=== PATIENT | female | born 2000 | race Hispanic/Latino ===

== ENCOUNTER 2020-06-24 03:09 | Day surgery (SDC) | payer MEDICAID, OTHER ==
[2020-06-24 03:47] VITALS: BP 97/62; TEMP 98.8; BMI 26.2
--- NOTE | 2020-06-24 04:02 | PDOC.FPROB ---
FMR OB H&P: HPI - History of Present Illness Chief Complaint: contractions History of Present Illness: Pt is a 19 yo F at 39.4 wga who presents with ctx. Patient states they started this morning around 0030 after intercourse. They were about 6-7 minutes apart and not too painful or uncomfortable. Now she thinks they are a little bit more uncomfortable now and maybe 5-6 minutes apart. Patient is resting comfortably. Endorses good movement. No LOF/VD/VB. FMR OB H&P: Current - Care : 1 Para: 0 Gestational age: 39.4wga Due date: 06/27/20 Dating Criteria: LMP/14wk sono - OB Labs Blood type: B RH: positive Antibody Screen: negative HIV: negative RPR: negative HepBsAg: negative Rubella: non-immune Quad screen: negative Gonorrhea: negative Chlamydia: negative 3 hour GTT: 77/107/91 H&H: 11.8/33.7 Platelets: 228 FMR OB H&P: History - Past Medical History PMH: denies - OB History OB History: rubella non immune needs MMR PP anemia of on PO iron Asymptomatic bacteruria in 2T treated with Macrobid E coli bacteruria and UTI treated with Keflex, negative MARYCARMEN on 06/06 Tdap given on 04/09/20 EFW 2275, 19.8% on 06/06 - 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 Menarche 11yo No hx STDs - Surgical History Sx History: denies - Social History Social History: no drug, alcohol, tobacco use - Family History Family History: non contributory FMR OB H&P: Medications - Current Home Medications: Medication Instructions Recorded Confirmed Type No Known 06/24/20 06/24/20 History Allergies/Adverse Reactions: Allergies Allergy/AdvReac Type Severity Reaction Status Date / Time No Known Allergies Allergy Unverified 06/24/20 03:48 FMR OB H&P: ROS - Review of Systems General: denies: fever/chills, night sweats, fatigue, recent trauma Eyes: denies: vision changes, double vision Cardiovascular: denies: chest pain, palpitation, edema Gastrointestinal: denies: abdominal pain, diarrhea, constipation, bright red blood Genitourinary (Female): reports: contractions. denies: incontinence, vaginal pa in, vaginal bleeding, vaginal pressure Musculoskeletal: denies: pain, tenderness Neurologic: denies: weakness Integumentary: denies: itching, rash FMR OB H&P: Vital Signs - Maternal Vital signs: Vital Signs - First Documented Temp Pulse Resp BP Pulse Ox 98.8 F 91 18 97/62 98 06/24/20 03:28 06/24/20 03:28 06/24/20 03:28 06/24/20 03:28 06/24/20 03:28 - Heart Tones Baseline: 120 Variability: moderate Acceleration: present Deceleration: absent Category: category 1 Gough contractions every: 4-5 FMR OB H&P: Physical Exam - Physical Exam General: NAD, awake, alert and oriented HEENT: normocephalic and atraumatic Neck: supple, FROM Heart: RRR, normal S1/S2 General: CTAB, no respiratory distress Abdomen: soft, gravid Musculoskeletal: FROM in all four extremities Skin: no rash, good tugor Lymphatic: no unusual bruising or bleeding Psychiatric: intact recent and remote memory, good judgement and insight - Pelvic Exam SVE: 70/-2 Lemus score: 7 Membranes: intact Presentation: cephalic FMR OB H&P: A/P Disposition: Pt is a 19 yo F at 39.4 wga who presents with ctx. 1. rule out labor -patient complaining of contractions, patient looks comfortable -membranes intact -Lemus score: 7 -cervical check 3/70/-2 @0425 -continue monitoring: cat 1 strip 120bpm with + accels, moderate variability, ctx q 4-5 min at time of cervical check -plan to recheck cervix in 2 hours 2. anemia of , resolved -aware, previously on PO iron Plan to admit for labor if cervical change is evident at next cervical check in 2 hours. Discussion: Date/Time: 06/24/200 This H&P was discussed with Dr. Cobb and Dr. Monreal who agree with the above documentation and plan. Addendum - Attending - Attending Attestation Date/Time: 06/24/20657 I personally evaluated the patient and discussed the management with Dr. Sevilla. I agree with the History, Examination, Assessment and Plan documented above.
[2020-06-24] MEDS ORDERED: hydrALAZINE 20 MG/ML VIAL SLOW IVP PRN (05:09)
--- NOTE | 2020-06-24 06:44 | PDOC.BPN ---
<Magalis Sevilla - Last Filed: 06/24/20 06:41> - Brief Progress Note Encounter Date: 06/24/20 Encounter Time: 06:20 Pt is resting comfortably in bed. States her contractions are getting closer together but is still resting through them. Strip looks good, category 1: 120bpm +accels, mod variability contractions q3-5 min. Pt endorses good movement, no LOF, small amount of vaginal bleeding with cervical check. Recheck of cervix was /-2 @0610, very minimal change. Plan: send patient home with labor precautions. Plan discussed with Dr. Monreal and he agrees with the above documentation. <Robi Monreal - Last Filed: 06/24/20 06:59> Addendum - Attending - Attending Attestation Date/Time: 06/24/20 0658 I personally evaluated the patient and discussed the management with Dr. Sevilla. I agree with the History, Examination, Assessment and Plan documented above.
== END 2020-06-24 06:33 | disposition home or self-care (01) ==
LOC: L&D/OP 03:09
PROVIDERS: ATTEND Obstetrics & Gynecology
DX: O47.1 False labor at or after 37 completed weeks of gestation (principal); O99.013 Anemia complicating pregnancy, third trimester; D64.9 Anemia, unspecified; Z3A.39 39 weeks gestation of pregnancy

== ENCOUNTER 2020-06-24 10:44 | Inpatient (IN) | payer OTHER ==
[2020-06-24 11:13] VITALS: BMI 26.2
[2020-06-24] MEDS ORDERED: FLU VACC QS2020-21(6MOS UP)/PF 60 MCG/0.5 ML SYRINGE IM ONE (11:30)
--- NOTE | 2020-06-24 11:42 | PDOC.FPROB ---
FMR OB H&P: HPI - History of Present Illness Chief Complaint: contractions History of Present Illness: @ 39.4 wks by LMP and 14 wk ruy presents for painful contractions. She came to triage last night for similar symptoms, was found to have no cervical spinning frame changer a number of hours, and was discharged to home with return precautions. She took tylenol for her pain on her way home from triage, which only offered minimal improvement of her contraction pains. She has been unable to rest since she came to triage last night. States that she has been heaven every 2-5 minutes, and when she starts to fall asleep the pain from the contractions wakes her up. She endorses some spotting after cervical checks last night, but denies any daniel vaginal bleeding. No LOF, no vaginal discharge. Upon discharge last night SVE 3/80/-2 mid position. Primary Care Physician: Ramirez MALAVE FMR OB H&P: Current - Care : 1 Para: 0 Gestational age: 39.4 Due date: 06/27/20 Dating Criteria: LMP/14 wk sono - OB Labs Blood type: B RH: positive Antibody Screen: negative HIV: negative RPR: negative HepBsAg: negative Rubella: non-immune Quad screen: negative Urine drug screen: negative Gonorrhea: negative Chlamydia: negative 3 hour GTT: 77/107/91 H&H: 11.8/33.7 Platelets: 228 FMR OB H&P: History - Past Medical History PMH: none - OB History OB History: rubella non immune needs MMR PP anemia of on PO iron Asymptomatic bacteruria in 2T treated with Macrobid E coli bacteruria and UTI treated with Keflex, negative MARYCARMEN on 06/06 Tdap given on 04/09/20 EFW 2275, 19.8% on 06/06 - 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 Menarche 11yo No hx STDs - Surgical History Sx History: none - Social History Social History: denies drug, etoh, tobacco use - Family History Family History: non-contributory FMR OB H&P: Medications - Current Home Medications: Medication Instructions Recorded Confirmed Type Ferrous Sulfate 325 mg PO DAILY 06/24/20 06/24/20 History Vitamin 1 tablet PO DAILY 10/11/20 10/11/20 History Allergies/Adverse Reactions: Allergies Allergy/AdvReac Type Severity Reaction Status Date / Time No Known Allergies Allergy Unverified 06/24/20 03:48 FMR OB H&P: ROS - Review of Systems General: denies: fever/chills Eyes: denies: vision changes ENT: denies: nasal congestion, rhinorrhea Cardiovascular: denies: palpitation, edema Respiratory: denies: cough, shortness of breath Gastrointestinal: denies: abdominal pain, nausea, vomiting Genitourinary (Female): reports: contractions, other (vaginal spotting). denies: dysuria, vaginal discharge Musculoskeletal: denies: pain Neurologic: denies: weakness, headache Integumentary: denies: rash Psychological: reports: other (insomnia) FMR OB H&P: Vital Signs - Maternal Vital signs: Vital Signs - First Documented Temp Pulse Resp BP 98.7 F 82 18 114/66 06/24/20 11:10 06/24/20 11:10 06/24/20 11:10 06/24/20 11:10 - Heart Tones Baseline: 120 Variability: moderate Acceleration: present Deceleration: absent Carlyle contractions every: 2-4 FMR OB H&P: Physical Exam - Physical Exam General: NAD Deviation from normal: alert and oriented, appears fatigued HEENT: normocephalic and atraumatic, MMM, grossly normal vision, grossly normal hearing Neck: supple Heart: RRR, normal S1/S2, no murmurs/rubs/gallops, pulses present, no edema General: CTAB, no respiratory distress Abdomen: gravid, non-tender Musculoskeletal: pulses present Neurological: sensation to pain,touch and proprioception grossly normal Skin: no rash Lymphatic: no unusual bruising or bleeding Psychiatric: intact recent and remote memory - Pelvic Exam SVE: Membranes: intact FMR OB H&P: A/P Disposition: sIUP, r/o labor 19 y/o returns to triage for painful contractions. SVE early this AM /- 2 with no appreciable cervical change after 2 hours of monitoring in triage and who was subsequently discharged to home. Continues to have painful contractions q2-4 min. - SVE @ 1130 1 - Given phenergan and morphine for pain control, rest - Repeat SVE @ 1500 3/95/-1, ballotable - Membranes swept @ 1530 after discussion with patient about risk and benefit - Will recheck in 2 hours, if remains unchanged will discharge to home with return labor precautions Discussion: Date/Time: 06/24/20 114 This H&P was discussed with Dr. Mora and Dr. Mcrae who agree with the above documentation and plan.
[2020-06-24] MEDS ORDERED: hydrALAZINE 20 MG/ML VIAL SLOW IVP PRN ×2 (11:46→18:31)
[2020-06-24] MEDS ORDERED: Morphine 10 MG/ML VIAL IM SCH (12:00)
[2020-06-24] MEDS ORDERED: Morphine 4 MG/ML VIAL IM SCH (12:00)
[2020-06-24] MEDS ORDERED: Promethazine HCl 25 MG/ML VIAL IM SCH (12:00)
[2020-06-24] MEDS ORDERED: Bupivacaine/Epinephrine 0.25% 30 ML VIAL ONE (15:18)
[2020-06-24] MEDS ORDERED: Misoprostol 200 MCG TAB PR PRN (18:31)
[2020-06-24] MEDS ORDERED: Meperidine HCl/PF 25 MG/ML VIAL IM/IV PRN (18:31)
[2020-06-24] MEDS ORDERED: Methylergonovine 0.2 MG/ML VIAL IM PRN (18:31)
[2020-06-24] MEDS ORDERED: Lidocaine 1% (PF) 30 ML VIAL SC PRN (18:31)
[2020-06-24] MEDS ORDERED: Promethazine HCl 25 MG/ML VIAL IM PRN (18:31)
[2020-06-24] MEDS ORDERED: Acetaminophen 500 MG TAB PO PRN (18:31)
[2020-06-24] MEDS ORDERED: Carboprost 250 MCG/ML AMP IM PRN (18:31)
[2020-06-24] MEDS ORDERED: Ibuprofen 800 MG TAB PO PRN (18:31)
[2020-06-24] MEDS ORDERED: NS / Oxytocin 40 units/1000ml 1,000 ML IV PRN (18:31)
[2020-06-24] MEDS ORDERED: Ondansetron PF 4 MG/2 ML Vial IVP PRN (18:31)
[2020-06-24] MEDS: Lactated Ringer's 1,000 ML IV SCH ×2 (19:05→22:08)
[2020-06-24 19:15] LABS: Hemoglobin 13.3 g/dL (12.0-16.0); Mean Corpuscular HGB CONC 35.6 g/dL (32.0-36.0); Mean Corpuscular Volume 92.5 fL (78.0-98.0); Platelet Count 241 thou/uL (130-400); RBC Distribution Width 12.1 % (11.5-14.5); Red Blood Cell (RBC) Count 4.03 mill/uL (4.00-5.20); White Blood Cell (WBC) Count 21.9 thou/uL (4.8-10.8)
[2020-06-24 19:53] LABS: Syphilis Antibody Nonreactive (Nonreactive); Syphilis Antibody Index 0.03 S/CO (<1.00 Non-Reactive)
[2020-06-24 19:54] LABS: HBSAg Index 0.16 S/CO (0-0.99); Hep B Surf Ag Non-Reactive S/CO (NonReactive)
[2020-06-24] MEDS: Butorphanol Tartrate 1 MG/ML VIAL SLOW IVP PRN ×2 (20:03→21:52)
--- NOTE | 2020-06-24 23:29 | PDOC.BPN ---
- Brief Progress Note Encounter Date: 06/24/20 Encounter Time: 22:35 Labor Progress Note Pt was rechecked at 1820 and was found to be 4/100/-1 with a bulging bag, which was change from previous check. She was heaven every 2-4 minutes and was more and more uncomfortable so she was admitted for labor. @1999 patient was 5/100/-1 and AROM was performed at this time with clear fluid with scant blood @ 2044 patient called out complaining of a lot of pressure and was 6/100/0 @ 2234 patient was in increasing pain and cervical check was 7/100/0. Patient is considering an epidural at this time. Vitals WNL. strip is category 1. Baseline varies between 110 and 120 with moderate variability and positive for accels. Contractions on toco are q2-3 minutes and patient is breathing heavily through them. Anticipate .
[2020-06-25] MEDS: Butorphanol Tartrate 1 MG/ML VIAL SLOW IVP PRN (00:49)
[2020-06-25] MEDS ORDERED: Fentanyl 4 mcg/Bup 0.1% Cadd 100 ML ONE (02:09)
[2020-06-25] MEDS ORDERED: Fentanyl 100 MCG/2 ML VIAL ONE (02:11)
[2020-06-25] MEDS: Lactated Ringer's 1,000 ML IV SCH (02:45)
[2020-06-25] MEDS ORDERED: Promethazine HCl 25 MG/ML VIAL IM PRN (02:50)
[2020-06-25] MEDS ORDERED: Lactated Ringer's 500 ML IV PRN (02:50)
[2020-06-25] MEDS ORDERED: Naloxone HCl 0.4 mg/ml Vial IVP PRN ×2 (02:50)
[2020-06-25] MEDS ORDERED: Ondansetron PF 4 MG/2 ML Vial IVP PRN ×2 (02:50→07:38)
[2020-06-25] MEDS ORDERED: Acetaminophen 325 MG TAB PO PRN (02:50)
[2020-06-25] MEDS ORDERED: diphenhydrAMINE 50 MG/ML VIAL IVP PRN (02:50)
[2020-06-25] MEDS ORDERED: EPHEDRINE 25 MG/5 ML SYRINGE SLOW IVP PRN (02:50)
[2020-06-25] MEDS ORDERED: Fentanyl 4 mcg/Bupivacaine 0.1% Cassette 100 ML EPIDURAL SCH (03:00)
[2020-06-25] MEDS ORDERED: Communication Order-Pharmacy FS SCH (03:00)
[2020-06-25] MEDS ORDERED: NS w/ Oxytocin 10 units 500 ML IV SCH (04:30)
--- NOTE | 2020-06-25 05:20 | PDOC.LDPN ---
Labor & Delivery Progress Note - Subjective Subjective: comfortable - Objective Vital signs reviewed and normal: yes General: NAD, resting Uterine fundus: non tender Dilation: 9.5 Effacement: 100% Station: 2+ FHT: category 1 (baseline @ 120bpm) [place] contractions every: 2-3 AROM: clear fluid (@2000) IUPC placed: yes (@0420) Plan: continue plan of care -: Patient resting comfortably. Continue routine antepartum care. Continue monitoring. Labor Progress: 8/100/0 @0210, epidural 8/100/0@4200, IUPC placed 9.5/100/2 @0506 Anticipate .
[2020-06-25] MEDS ORDERED: Misoprostol 200 MCG TAB VAG PRN (07:38)
[2020-06-25] MEDS ORDERED: NS / Oxytocin 40 units/1000ml 1,000 ML IV SCH (07:38)
[2020-06-25] MEDS ORDERED: Benzocaine-Menthol 82.5 ML CAN TOP PRN (07:38)
[2020-06-25] MEDS ORDERED: Measles/Mumps/Rubella 10 MCG/0.5 ML VIAL SC ONE (07:38)
[2020-06-25] MEDS ORDERED: hydrALAZINE 20 MG/ML VIAL SLOW IVP PRN (07:38)
[2020-06-25] MEDS ORDERED: diphenhydrAMINE 25 MG CAP PO PRN (07:38)
[2020-06-25] MEDS ORDERED: Methylergonovine 0.2 MG/ML VIAL IM PRN (07:38)
[2020-06-25] MEDS ORDERED: Milk Of Magnesia 30 ML UDCUP PO PRN (07:38)
[2020-06-25] MEDS ORDERED: Bisacodyl 10 MG SUPP PR PRN (07:38)
[2020-06-25] MEDS ORDERED: Lanolin Ointment 7 GM TUBE TOP PRN (07:38)
[2020-06-25] MEDS: Ferrous Sulfate 325 MG TAB PO SCH ×2 (08:50→18:22)
[2020-06-25] MEDS: Docusate Calcium (SURFAK) 240 MG CAP PO SCH ×2 (10:28→21:17)
[2020-06-25] MEDS: Prenatal Vitamin 1 TAB PO SCH (10:28)
[2020-06-25 11:39] LABS: SARS-CoV-2 MS2 Positive; SARS-CoV-2 N Gene Negative; SARS-CoV-2 S Gene Negative; SARS-CoV-2 by NAA Not Detected (NotDetected); SARS-CoV-2 orf1ab Negative
[2020-06-25] MEDS: Ibuprofen 800 MG TAB PO SCH ×2 (13:22→21:17)
[2020-06-26] MEDS: Ibuprofen 800 MG TAB PO SCH ×3 (05:30→22:24)
--- NOTE | 2020-06-26 07:02 | PDOC.PP ---
Post Progress Note Post Day #: 1 Subjective: Doing very well. Lochia decreased. Pain well-controlled with motrin. No n/v. No CP, SOB, vision changes, ZHAO. Ambulating. Tolerating PO. Voiding and passing flatus. Breast feeding is going well, met with [employer] business intelligence consultant yesterday. Has car seat. Plans for nexplanon for PP contraception. Considering discharge tonight vs tomorrow pending clinical course. PO intake tolerated: yes Flatus: yes Ambulation: yes Vital Signs (12 hours) Temp Pulse Resp BP 06/26/20 05:25 98.4 F 77 14 98/58 L 06/26/20 00:10 98.5 F 97 15 100/59 L 06/25/20 20:20 98.5 F 86 15 100/60 Weight Weight 63.049 kg - Physical Examination General: NAD (resting comfortably) Cardiovascular: no m/r/g, RRR Respiratory: clear to auscultation bilaterally Abdominal: + bowel sounds, no distention, appropriately TTP Fundus firm & at: below umbilicus Extremities: negative homans (B) (no edema) Neurological: no gross focal deficits Psychiatric: A&Ox3, normal affect Result Diagrams: 06/24/20 18:53 Additional Labs: Post Labs Hep Bs Antigen Non-Reactive S/CO (NonReactive) 06/24/20 18:53 Blood Type B POSITIVE 06/24/20 19:21 (1) care following vaginal delivery Code(s): Z39.2 - ENCOUNTER FOR ROUTINE FOLLOW-UP Status: Acute - Assessment/Plan 19yo @ 39.5 s/p PPD #1 #PPD#1 s/p - at 0638 on 06/25 to a TAGA female - Left superior labial tear repaired with single figure of eight suture. Hemostatic periurethral tears - Pain well-controlled with PO motrin - Ambulating, voiding, flatus, tolerating PO well - Routine PP care - Anticipate discharge tonight vs tomorrow pending mother and baby clinical course - Encourage breast feeding - Plans for nexplanon for PP contraception PCP: ANANDA Kelly Dispo: Routine PP care s/p . Discharge today vs tomorrow pending clinical course. Addendum - Attending - Attending Attestation Date/Time: 06/26/20713 I personally evaluated the patient and discussed the management with Dr. Barksdale. I agree with the History, Examination, Assessment and Plan documented above.
[2020-06-26] MEDS: Docusate Calcium (SURFAK) 240 MG CAP PO SCH ×2 (07:35→22:24)
[2020-06-26] MEDS: Prenatal Vitamin 1 TAB PO SCH (07:35)
[2020-06-26] MEDS: Ferrous Sulfate 325 MG TAB PO SCH ×2 (07:36→15:12)
--- NOTE | 2020-06-26 08:28 | DN ---
DATE OF PROCEDURE: 06/25/2020 DELIVERING PHYSICIANS: 1. Magalis Sevilla MD, PGY-1. 2. Abe Barksdale MD, PGY-2. ATTENDING: Delroy Mora MD PROCEDURE: Spontaneous vaginal delivery. ANESTHESIA: Epidural. QBL: 175 mL. PREOPERATIVE DIAGNOSES: 1. Term intrauterine in labor. 2. Rubella nonimmune. 3. Anemia of . 4. Asymptomatic bacteriuria, treated. 5. Escherichia coli bacteriuria and urinary tract infection, treated. POSTOPERATIVE DIAGNOSES: 1. Term intrauterine , delivered. 2. Rubella nonimmune. 3. Anemia of . 4. Asymptomatic bacteriuria, treated. 5. Escherichia coli bacteriuria and urinary tract infection, treated. INDICATION: A 19-year-old female, G1, P0, presenting in active labor. DELIVERY NOTE: This is a 19-year-old female, G1, P0, at 39.5 weeks gestational age, who delivered a viable female at 0638 hours following an uneventful antepartum course. A vigorous female was delivered over intact perineum in the occipitoanterior position. Anterior shoulder and remainder of the body was delivered. No nuchal cord was noted. The head was held down and mouth and nares were bulb suctioned. Cord was clamped after delayed cord clamping and cut and cord blood collected. Placenta delivered intact in Schultze presentation with a 3-vessel cord noted. Fundal massage was performed and the fundus was firm. The cervix was inspected and found to be free of laceration. Of note, there was a periurethral laceration, which was hemostatic and a superior left perilabial laceration, which was repaired with 3-0 Vicryl in usual fashion and good approximation. Hemostasis was noted. Infant went to nursery in good condition for routine care. Apgars were 8 and 8 at 1 and 5 minutes respectively. The patient tolerated delivery well and went to after routine recovery care. Dr. Mora was present and teaching throughout the whole delivery. Job ID: [id number]
[2020-06-27] MEDS: Ibuprofen 800 MG TAB PO SCH (05:32)
--- NOTE | 2020-06-27 06:33 | PDOC.PP ---
Post Progress Note Post Day #: 2 Subjective: Doing well. Ambulating, Flatus, voiding. Tolerating PO well without n/v. Has PP appt in 2 weeks set up as well as appt with [facility] next week for breast pump and supplies. Has been having difficulty with latching and , meeting with interventional sale consultant today. Eager for discharge. Denies fever/chills, ZHAO, vision changes, CP, SOB. PO intake tolerated: yes Flatus: yes Ambulation: yes Vital Signs (12 hours) Temp Pulse Resp BP Pulse Ox 06/26/20 19:46 98.6 F 80 12 114/76 100 Weight Weight 63.049 kg - Physical Examination General: NAD (resting comfortably) Cardiovascular: no m/r/g, RRR Respiratory: clear to auscultation bilaterally Abdominal: + bowel sounds, no distention, appropriately TTP Fundus firm & at: below umbilicus Neurological: no gross focal deficits Psychiatric: A&Ox3, normal affect Result Diagrams: 06/24/20 18:53 Additional Labs: Post Labs Hep Bs Antigen Non-Reactive S/CO (NonReactive) 06/24/20 18:53 Blood Type B POSITIVE 06/24/20 19:21 (1) care following vaginal delivery Code(s): Z39.2 - ENCOUNTER FOR ROUTINE FOLLOW-UP Status: Acute - Assessment/Plan 19yo @ 39.5 s/p PPD #2 #PPD#2 s/p - at 0638 on 06/25 to a TAGA female - Left superior labial tear repaired with single figure of eight suture. Hemostatic periurethral tears - Pain well-controlled with PO motrin - Ambulating, voiding, flatus, tolerating PO well - Routine PP care - Anticipate discharge today after meeting with interventional sale consultant - Encourage breast feeding - Plans for nexplanon for PP contraception PCP: AANNDA Kelly Dispo: Routine PP care s/p . Discharge today. Addendum - Attending - Attending Attestation Date/Time: 06/27/20 0804 I personally evaluated the patient and discussed the management with Dr. Barksdale. I agree with the History, Examination, Assessment and Plan documented above.
[2020-06-27] MEDS: Ferrous Sulfate 325 MG TAB PO SCH (08:10)
[2020-06-27] MEDS: Prenatal Vitamin 1 TAB PO SCH (08:11)
[2020-06-27] MEDS: Docusate Calcium (SURFAK) 240 MG CAP PO SCH (08:11)
[2020-06-27 08:15] VITALS: BP 112/79; TEMP 97.6
== END 2020-06-27 13:20 | disposition home or self-care (01) | DRG 807 ==
LOC: L&D/OP 10:44 → L&D 06-25 00:08 → 3SW 06-25 09:17
PROVIDERS: ADMIT Obstetrics & Gynecology; ATTEND Obstetrics & Gynecology
PROC: 10E0XZZ Delivery of Products of Conception, External Approach (ICD-10-PCS; principal; 2020-06-25)
PROC: 0HQ9XZZ Repair Perineum Skin, External Approach (ICD-10-PCS; 2020-06-25)
PROC: 10H07YZ Insertion of Other Device into Products of Conception, Via Natural or Artificial Opening (ICD-10-PCS; 2020-06-25)
PROC: 10907ZC Drainage of Amniotic Fluid, Therapeutic from Products of Conception, Via Natural or Artificial Opening (ICD-10-PCS; 2020-06-25)
PROC: 3E0234Z Introduction of Serum, Toxoid and Vaccine into Muscle, Percutaneous Approach (ICD-10-PCS; 2020-06-26)
DX: O99.02 Anemia complicating childbirth (principal); Z37.0 Single live birth; Z3A.39 39 weeks gestation of pregnancy; D64.9 Anemia, unspecified; Z20.828 Contact with and (suspected) exposure to other viral communicable diseases; Z79.899 Other long term (current) drug therapy; Z23 Encounter for immunization; Z87.440 Personal history of urinary (tract) infections; O71.82 Other specified trauma to perineum and vulva; O70.0 First degree perineal laceration during delivery
CPT/HCPCS: 36415; 51702; 85027; 86780; 86850; 86900; 86901; 87340; 87635; 90707; 99285; J0595; J1200; J2270; J2405; J2550; J2590; J3010; U0003